=== PATIENT | male | born 1985 | race Caucasian/White ===

== ENCOUNTER 2021-01-19 19:22 | Emergency (ER) | payer BC ==
[2021-01-19] MEDS ORDERED: Tetracaine HCl/PF 0.5% 4 ML Bottle EYERT ONE (19:30)
--- NOTE | 2021-01-19 19:33 | EDM.PDOC ---
ED HPI GENERAL MEDICAL PROBLEM - General Chief Complaint: Allergic Reaction Stated Complaint: LEFT EYE SWELLING/FACIAL NUMBNESS Time Seen by Provider: 01/19/21 19:22 Source of Information: Reports: Patient History Limitations: Reports: No Limitations - History of Present Illness INITIAL COMMENTS - FREE TEXT/NARRATIVE: Patient comes emergency department today with complaints of left eye irritation. Approximately 2 to 3 hours ago the patient felt a sudden what he relates as a "pop" and started to have some irritation to his left eye. He does not believe that he got anything in his eye. He has this continual irritation and some paresthesias of his left lower lid. His visual acuity is unchanged. He has no blurry vision. He has no headache. He has no pain in his eye. He has had no discharge from his eye. He has had no recent trauma or injury to his eye. He is unsure of when his last tetanus shot was. - Related Data Allergies Allergy/AdvReac Type Severity Reaction Status Date / Time No Known Allergies Allergy Verified 01/19/21 19:29 Home Meds: Home Meds Amphetamine/Dextroamphetamine [Adderall] 20 mg PO DAILY 01/19/21 [History] LORazepam [Ativan] 0.5 mg PO DAILY PRN 01/19/21 [History] Meloxicam 15 mg PO DAILY 01/19/21 [History] ED ROS ALLERGIC REACTION - Review of Systems Review Of Systems: Comprehensive ROS is negative, except as noted in HPI. ED EXAM GENERAL NO PERIP PULSE - Physical Exam Exam: See Below Exam Limited By: No Limitations General Appearance: Alert, WD/WN, No Apparent Distress Eye Exam: Left Eye: Corneal Abrasion (Under fluorescein examination at the 6 o'clock position just below the iris there is a transverse very small superficial corneal abrasion), Other (The left lower eyelid is actually inverted and the eyelashes are pushing against the cornea. There is a small stye at the 4 o'clock position of the left lower eyelid. There is no exudate. The conjunctive a is mildly injected without discharge. There is no other foreign material.), Bilateral Eye: EOMI, PERRL Ears: Normal External Exam Nose: Normal Inspection Throat/Mouth: Normal Inspection, Normal Lips Head: Atraumatic, Normocephalic Neck: Normal Inspection, Supple, Non-Tender, Full Range of Motion Respiratory/Chest: No Respiratory Distress, Lungs Clear, No Accessory Muscle Use, Chest Non-Tender Cardiovascular: Normal Peripheral Pulses, Regular Rate, Rhythm Extremities: Normal Inspection Neurological: Alert, Oriented, CN II-XII Intact, Normal Cognition, Normal Gait, Normal Reflexes, No Motor/Sensory Deficits Psychiatric: Normal Affect, Normal Mood Skin Exam: Warm, Dry, Intact, Normal Color, No Rash Course - Vital Signs Last Recorded V/S: Last Vital Signs Temp 98.2 F 01/19/21 19:32 Pulse 86 01/19/21 19:25 Resp 18 01/19/21 19:25 BP 121/85 01/19/21 19:25 Pulse Ox 98 01/19/21 19:25 - Orders/Labs/Meds Orders: Active Orders 24 hr Category Date Time Status Vaccines to be Administered [RC] PER UNIT ROUTINE Care 01/19/21 20:11 Active Meds: Medications Discontinued Medications Generic Name Dose Route Start Last Admin Trade Name Cordellq PRN Reason Stop Dose Admin Diphtheria/Tetanus/Acell Pertussis 0.5 ml 01/19/21 20:11 01/19/21 20:15 Diphtheria,Pertussis(Acell),Tetanus Vaccine 0.5 Ml Syringe IM 01/19/21 20:12 0.5 ml .ONCE ONE Administration Tetracaine HCl 1 ml 01/19/21 19:30 01/19/21 19:50 Tetracaine Hcl/Pf 0.5% 4 Ml Bottle EYERT 01/19/21 19:31 1 dose ASDIRECTED ONE Administration - Re-Assessments/Exams Free Text/Narrative Re-Assessment/Exam: 01/19/21 20:52 After I was able to fix the patient's lower eyelid that was inverted in with his eyelashes on his cornea his symptoms almost completely resolved. There is a small stye on the left lower lid as well. There is no sign of infection. The sclera is mildly injected. Under fluorescein there is clearly a corneal abrasion at the 6 o'clock position just below the iris. Patient was given Cipro drops for the corneal abrasion. I am unsure what caused all of the sequelae. There is no foreign material. His symptoms were much improved after I was able to reduce the eversion of his left lower eyelid. He has a stye in his eye which may be an aspect of this but he clearly has a corneal abrasion. We will treat the stye of the eyes conservatively. Cipro for his corneal abrasion. Recheck with optometry ophthalmology as below. Discharge structures as below are explained to the patient he was comfortable this plan his questions are answered. Departure - Departure Time of Disposition: 19:54 Disposition: Home, Self-Care 01 Clinical Impression: Corneal abrasion, left Qualifiers: Encounter type: initial encounter Qualified Code(s): S05.02XA - Injury of conjunctiva and corneal abrasion without foreign body, left eye, initial encounter Sty, internal Qualifiers: Laterality: left Eyelid: lower Qualified Code(s): H00.025 - Hordeolum internum left lower eyelid - Discharge Information Instructions: Stye, Corneal Abrasion, [id number] Referrals: Lisa Campos PA-C [Primary Care Provider] - Forms: ED Department Discharge Additional Instructions: Tylenol and or Ibuprofen as needed for pain. Warm pack to the eye for the stye. Cipro eye drops 2 drops to the left eye 4 times a day for 5 days. Bottle sent home from the ED. In 24 hours you should have 90% improvement. In 48 hours you should have 100% improvement. If you are not following this you need to be evaluated by optometry or ophthalmology. No contact lenses for 10 days. Return to the emergency department new or worsening symptoms. Follow-up with optometry or ophthalmology if not improving as above. Sepsis Event Note (ED) - Focused Exam Vital Signs: Vital Signs Temp Pulse Resp BP Pulse Ox 01/19/21 19:32 98.2 F 01/19/21 19:25 86 18 121/85 98 - My Orders Last 24 Hours: My Active Orders 01/19/21 20:11 Vaccines to be Administered [RC] PER UNIT ROUTINE - Assessment/Plan Last 24 Hours: My Active Orders 01/19/21 20:11 Vaccines to be Administered [RC] PER UNIT ROUTINE
[2021-01-19] MEDS ORDERED: Diphtheria,Pertussis(Acell),Tetanus Vaccine 0.5 ML Syringe IM ONE (20:11)
== END 2021-01-19 20:23 | disposition home or self-care (01) ==
LOC: LL.ED 19:22
DX: S05.02XA Injury of conjunctiva and corneal abrasion without foreign body, left eye, initial encounter (principal); H00.025 Hordeolum internum left lower eyelid; Z23 Encounter for immunization; X58.XXXA Exposure to other specified factors, initial encounter
CPT/HCPCS: 90471; 90715; 99283

== ENCOUNTER 2023-02-15 15:00 | Emergency (ER) | payer OTHER ==
[2023-02-15 15:48] LABS: BASOPHILS ABSOLUTE AUTO 0.06 K/uL (0.00-0.20); BASOPHILS PERCENT AUTO 0.4 % (0.0-2.0); EOSINOPHILS ABSOLUTE AUTO 0.07 K/uL (0.00-0.50); EOSINOPHILS PERCENT AUTO 0.4 % (0.0-5.0); HEMATOCRIT 54.5 % (39.0-49.0); LYMPHOCYTES ABSOLUTE AUTO 1.92 K/uL (0.50-3.50); LYMPHOCYTES PERCENT AUTO 12.3 % (10.0-50.0); MEAN CORPUSCULAR HEMOGLOBIN 30.6 pg (28.2-33.3); MEAN CORPUSCULAR HGB CONC 34.9 g/dL (31.7-36.0); MEAN CORPUSCULAR VOLUME 87.9 fL (84.0-98.0); MONOCYTES ABSOLUTE AUTO 1.24 K/uL (0.00-1.00); MONOCYTES PERCENT AUTO 7.9 % (2.0-14.0); NEUTROPHILS ABSOLUTE AUTO 12.31 K/uL (1.40-7.00); PLATELET COUNT,PLT 259 K/uL (150-350); RED CELL DISTRIBUTION WIDTH 13.5 % (11.2-14.1); WHITE BLOOD CELL COUNT,WBC 15.6 K/uL (4.0-10.2)
[2023-02-15 16:12] LABS: ALBUMIN 4.1 g/dL (3.4-5.0); ANION GAP 13.3 meq/L (7-15); BILIRUBIN TOTAL 0.7 mg/dL (0.2-1.0); CALCIUM 8.8 mg/dL (8.5-10.1); CARBON DIOXIDE,CO2 23.7 mmol/L (21.0-32.0); CREATININE 1.41 mg/dL (0.51-1.17); EST CRCL DRUG DOSING (CG) 89.52 mL/min; POTASSIUM,K 3.7 mmol/L (3.5-5.1); PROTEIN TOTAL,TP 7.5 g/dL (6.4-8.2)
[2023-02-15] MEDS: Iopamidol 612 MG/ML 100 ML Bottle IVPUSH ONE (16:12)
== END 2023-02-15 17:40 | disposition home or self-care (01) ==
LOC: LL.ED 15:00
DX: I10 Essential (primary) hypertension (principal); D72.0 Genetic anomalies of leukocytes; D58.2 Other hemoglobinopathies; Z79.899 Other long term (current) drug therapy; V49.40XA Driver injured in collision with unspecified motor vehicles in traffic accident, initial encounter; Y92.410 Unspecified street and highway as the place of occurrence of the external cause
CPT/HCPCS: 36415; 71046; 74177; 80053; 83605; 83615; 85025; 99285; Q9967